=== PATIENT | female | born 2000 | race African-American/Black ===

== ENCOUNTER 2020-07-28 22:18 | Emergency (ER) | payer OTHER ==
[~2020-07-28] VITALS: Ht 154.9 cm; Wt 54.4 kg
[2020-07-28] MEDS ORDERED: PNV 29-1 TABLE1 EACH PO (22:27)
[2020-07-28 22:30] LABS: URINE BILIRUBIN NEGATIVE (Negative); URINE BLOOD NEGATIVE (Negative); URINE CLARITY CLEAR; URINE COLOR YELLOW; URINE GLUCOSE-RANDOM* NEGATIVE (Negative); URINE KETONES NEGATIVE (Negative); URINE LEUKOCYTES-REFLEX NEGATIVE (Negative); URINE NITRITE-REFLEX NEGATIVE (Negative); URINE PROTEIN (DIPSTICK) NEGATIVE (Negative); URINE SPECIFIC GRAVITY >= 1.030 (1.005-1.035)
[2020-07-29 00:44] VITALS: BP 106/69
== END 2020-07-29 00:45 | disposition home or self-care (01) ==
LOC: ER 22:18
PROVIDERS: Emergency Medicine
DX: O20.0 Threatened abortion (principal); Z3A.12 12 weeks gestation of pregnancy